=== PATIENT | female | born 1945 | race Caucasian/White ===

== ENCOUNTER → 2017-12-01 | Outpatient (CLI) | payer MEDICARE ==
[~2017-12-01] MED LIST: BUPIVACAINE MPF 0.25% 10 ML VIAL. ONE; LIDOCAINE 1% PF 30 ML VIAL. ONE
== END | disposition home or self-care (01) ==
LOC: SURG 14:06
PROVIDERS: ATTEND Anesthesiology
DX: M47.814 Spondylosis without myelopathy or radiculopathy, thoracic region (principal); J44.9 Chronic obstructive pulmonary disease, unspecified; I10 Essential (primary) hypertension; M19.90 Unspecified osteoarthritis, unspecified site; E07.9 Disorder of thyroid, unspecified; Z90.710 Acquired absence of both cervix and uterus; Z98.41 Cataract extraction status, right eye; Z98.42 Cataract extraction status, left eye; Z88.6 Allergy status to analgesic agent; Z88.1 Allergy status to other antibiotic agents; Z88.2 Allergy status to sulfonamides
CPT/HCPCS: 64490; 64491; J2001; J3490

== ENCOUNTER → 2018-01-19 | Outpatient (CLI) | payer MEDICARE ==
[~2018-01-19] MED LIST changes: +IOHEXOL 300 MG/ML 50 ML VIAL. ONE; +methylPREDNISolone ACETATE 40 MG/ML VIAL. ONE
== END | disposition home or self-care (01) ==
LOC: SURG 13:47
PROVIDERS: ATTEND Anesthesiology
DX: M19.012 Primary osteoarthritis, left shoulder (principal); J44.9 Chronic obstructive pulmonary disease, unspecified; K21.9 Gastro-esophageal reflux disease without esophagitis; E11.9 Type 2 diabetes mellitus without complications; Z88.0 Allergy status to penicillin; Z88.2 Allergy status to sulfonamides; Z88.5 Allergy status to narcotic agent; Z88.8 Allergy status to other drugs, medicaments and biological substances; Z88.1 Allergy status to other antibiotic agents; Z79.82 Long term (current) use of aspirin; Z79.899 Other long term (current) drug therapy
CPT/HCPCS: 20610; 77002; J1030; J2001; J3490; Q9967

== ENCOUNTER → 2018-10-20 | Outpatient (CLI) | payer MEDICARE ==
[~2018-10-20] MED LIST changes: -BUPIVACAINE MPF 0.25% 10 ML VIAL. ONE; +BUPIVACAINE MPF 0.5% 30 ML VIAL. ONE; -IOHEXOL 300 MG/ML 50 ML VIAL. ONE; -methylPREDNISolone ACETATE 40 MG/ML VIAL. ONE; +methylPREDNISolone ACETATE 80 MG/ML VIAL. ONE
== END | disposition home or self-care (01) ==
LOC: SURG 10:17
PROVIDERS: ATTEND Anesthesiology Pain Medicine
DX: M70.62 Trochanteric bursitis, left hip (principal); I10 Essential (primary) hypertension; J44.9 Chronic obstructive pulmonary disease, unspecified; K21.9 Gastro-esophageal reflux disease without esophagitis; E11.9 Type 2 diabetes mellitus without complications; M19.90 Unspecified osteoarthritis, unspecified site; E07.9 Disorder of thyroid, unspecified; Z88.0 Allergy status to penicillin; Z88.1 Allergy status to other antibiotic agents; Z88.2 Allergy status to sulfonamides; Z88.5 Allergy status to narcotic agent; Z87.01 Personal history of pneumonia (recurrent); Z96.642 Presence of left artificial hip joint; Z88.8 Allergy status to other drugs, medicaments and biological substances; Z79.84 Long term (current) use of oral hypoglycemic drugs; Z79.899 Other long term (current) drug therapy
CPT/HCPCS: 20610; 77002; J1040; J2001; J3490

== ENCOUNTER → 2018-12-01 | Outpatient (CLI) | payer MEDICARE ==
[~2018-12-01] MED LIST changes: +BUPIVACAINE MPF 0.25% 30 ML VIAL. ONE; -BUPIVACAINE MPF 0.5% 30 ML VIAL. ONE; +IOHEXOL 300 MG/ML 50 ML VIAL. ONE; +methylPREDNISolone ACETATE 40 MG/ML VIAL. ONE; -methylPREDNISolone ACETATE 80 MG/ML VIAL. ONE
== END | disposition home or self-care (01) ==
LOC: SURG 07:56
PROVIDERS: ATTEND Anesthesiology Pain Medicine
DX: M54.16 Radiculopathy, lumbar region (principal); J44.9 Chronic obstructive pulmonary disease, unspecified; Z87.01 Personal history of pneumonia (recurrent); K21.9 Gastro-esophageal reflux disease without esophagitis; E11.9 Type 2 diabetes mellitus without complications; Z88.0 Allergy status to penicillin; Z88.5 Allergy status to narcotic agent; Z88.1 Allergy status to other antibiotic agents; Z88.2 Allergy status to sulfonamides; Z88.8 Allergy status to other drugs, medicaments and biological substances; Z79.899 Other long term (current) drug therapy; M19.90 Unspecified osteoarthritis, unspecified site; Z96.649 Presence of unspecified artificial hip joint; Z79.84 Long term (current) use of oral hypoglycemic drugs
CPT/HCPCS: 64483; J1030; J2001; J3490; Q9967

== ENCOUNTER 2021-07-03 13:11 | Emergency (ER) | payer MEDICARE ==
[~2021-07-03] VITALS: Ht 165.1 cm; Wt 77.2 kg
[2021-07-03 13:36] VITALS: BP 137/77
[2021-07-03 14:11] LABS: BASO # 0.2 x10^3/uL (0.0-0.2); BASO % 3 % (0-3); EOS # 0.2 x10^3/uL (0.0-0.7); EOS % 2 % (0-3); HEMATOCRIT 42.5 % (36.0-47.0); HEMOGLOBIN 13.9 g/dL (12.0-15.5); LYMPH # 2.2 x10^3/uL (1.0-4.8); LYMPH % 29 % (24-48); MEAN CORPUSCULAR HEMOGLOBIN 30 pg (25-35); MEAN CORPUSCULAR HGB CONC 33 g/dL (31-37); MEAN CORPUSCULAR VOLUME 92 fL (79-100); MONO # 0.6 x10^3/uL (0.0-1.1); MONO % 7 % (0-9); NEUT # 4.5 x10^3uL (1.8-7.7); NEUT % 59 % (31-73); PLATELET COUNT 278 x10^3/uL (140-400); RED BLOOD COUNT 4.63 x10^6/uL (3.50-5.40); RED CELL DISTRIBUTION WIDTH 14.4 % (11.5-14.5); WHITE BLOOD COUNT 7.7 x10^3/uL (4.0-11.0)
[2021-07-03 14:13] LABS: CALCIUM 9.3 mg/dL (8.5-10.1); CREATININE 0.6 mg/dL (0.6-1.0); GFR 97.7; POTASSIUM 3.1 mmol/L (3.5-5.1)
[2021-07-03 14:21] LABS: ALBUMIN 3.6 g/dL (3.4-5.0); TOTAL BILIRUBIN 0.6 mg/dL (0.2-1.0); TOTAL PROTEIN 7.3 g/dL (6.4-8.2)
[2021-07-03] MEDS ORDERED: ONDANSETRON PF 4 MG/2 ML VIAL. IVP ONE (15:30)
[2021-07-03] MEDS ORDERED: IV NORMAL SALINE 500ML 500 ML IV ONE (15:30)
--- NOTE | 2021-07-03 15:38 | PHYS DOC ---
Past History Past Surgical History: Hip Replacement, Hysterectomy, Knee Replacement, Other Additional Past Surgical Histo: back, cataracts Alcohol Use: None Adult General Chief Complaint Chief Complaint: NAUSEA/VOMITING/DIARRHEA [facility] HPI Patient is a 75 old female patient who presents with nausea diarrhea for the last 4 days. Patient reports she has not had an appetite for the last week, and for the last 3 days she has not been able to eat eat or drink much as she has felt very nauseous. States she has not vomited at all today, however she has not vomited yesterday. States she had several episodes of diarrhea over the last few days, she had tried some Pepto-Bismol with some help a little bit, however she continues to have some diarrhea. States her diarrhea has been very difficult, denies any blood, however reports it has been orange to greenish-brown. States she never had this past. She does report she had a knee surgery 8 weeks ago, however is not placing antibiotics. States she has never been on any antibiotics in the last several months. States she is concerned maybe C. difficile however she did reports no exposure. She does not have a history of C. difficile. Denies any fever. States anytime she is writing something, she had some severe pain in her abdomen. States last time she is actually able to eat a decent meal was 1 week ago Review of Systems Review of Systems Constitutional: Denies fever or chills [] reports malaise Eyes: Denies change in visual acuity, redness, or eye pain [] HENT: Denies nasal congestion or sore throat [] Respiratory: Denies cough or shortness of breath [] Cardiovascular: No additional information not addressed in HPI [] GI: [] States nausea, vomiting, diarrhea. States intermittent abdominal pain, worse after eating or drinking any fluids. : Denies dysuria or hematuria [] states no urinary changes Musculoskeletal: Denies back pain or joint pain [] Integument: Denies rash or skin lesions [] Neurologic: Denies headache, focal weakness or sensory changes [] Endocrine: Denies polyuria or polydipsia [] All other systems were reviewed and found to be within normal limits, except as documented in this note. Current Medications Current Medications Current Medications Medications (Trade) Dose Ordered Sig/Constanza Start Time Stop Time Status Last Admin Dose Admin Ondansetron HCl (Zofran) 4 mg 1X ONCE 07/03/21 15:30 07/03/21 15:31 UNV Sodium Chloride 500 ml @ 0 mls/hr 1X ONCE 07/03/21 15:30 07/03/21 15:31 UNV Allergies Allergies Allergies Coded Allergies Type Severity Reaction Last Updated Verified tetanus toxoid, adsorbed Allergy Intermediate 07/03/21 Yes Sulfa (Sulfonamide Antibiotics) Allergy Unknown 07/03/21 Yes Tetracyclic Antidepressants Allergy Unknown 07/03/21 Yes codeine Allergy Unknown 07/03/21 Yes erythromycin base Allergy Unknown 07/03/21 Yes sumatriptan Allergy Unknown 07/03/21 Yes Physical Exam Physical Exam Constitutional: Well developed, well nourished, no acute distress, non-toxic appearance. [] HENT: Normocephalic, atraumatic, bilateral external ears normal, no oral exudates, nose normal. [] Oropharynx appears dry Eyes: PERRLA, EOMI, conjunctiva normal, no discharge. [] Neck: Normal range of motion, no tenderness, supple, no stridor. [] Cardiovascular:Heart rate regular rhythm, no murmur [] Lungs & Thorax: Bilateral breath sounds clear to auscultation [] Abdomen: , soft, , no masses, no pulsatile masses. [] Diminished bowel sounds t hroughout. Tenderness noted on palpation to the left upper quadrant Skin: Warm, dry, no erythema, no rash. [] Back: No tenderness, no CVA tenderness. [] Extremities: No tenderness, no cyanosis, no clubbing, ROM intact, no edema. [] Neurologic: Alert and oriented X 3, normal motor function, normal sensory function, no focal deficits noted. [] Psychologic: Affect normal, judgement normal, mood normal. [] Current Patient Data Vital Signs Vital Signs Date Time Temp Pulse Resp B/P (MAP) Pulse Ox O2 Delivery O2 Flow Rate FiO2 07/03/21 13:36 99.3 77 16 137/77 100 Room Air Lab Results Laboratory Tests Test 07/03/21 13:44 White Blood Count 7.7 x10^3/uL (4.0-11.0) Red Blood Count 4.63 x10^6/uL (3.50-5.40) Hemoglobin 13.9 g/dL (12.0-15.5) Hematocrit 42.5 % (36.0-47.0) Mean Corpuscular Volume 92 fL (79-100) Mean Corpuscular Hemoglobin 30 pg (25-35) Mean Corpuscular Hemoglobin Concent 33 g/dL (31-37) Red Cell Distribution Width 14.4 % (11.5-14.5) Platelet Count 278 x10^3/uL (140-400) Neutrophils (%) (Auto) 59 % (31-73) Lymphocytes (%) (Auto) 29 % (24-48) Monocytes (%) (Auto) 7 % (0-9) Eosinophils (%) (Auto) 2 % (0-3) Basophils (%) (Auto) 3 % (0-3) Neutrophils # (Auto) 4.5 x10^3uL (1.8-7.7) Lymphocytes # (Auto) 2.2 x10^3/uL (1.0-4.8) Monocytes # (Auto) 0.6 x10^3/uL (0.0-1.1) Eosinophils # (Auto) 0.2 x10^3/uL (0.0-0.7) Basophils # (Auto) 0.2 x10^3/uL (0.0-0.2) Sodium Level 138 mmol/L (136-145) Potassium Level 3.1 mmol/L (3.5-5.1) L Chloride Level 104 mmol/L (98-107) Carbon Dioxide Level 23 mmol/L (21-32) Anion Gap 11 (6-14) Blood Urea Nitrogen 8 mg/dL (7-20) Creatinine 0.6 mg/dL (0.6-1.0) Estimated GFR (Cockcroft-Gault) 97.7 BUN/Creatinine Ratio 13 (6-20) Glucose Level 141 mg/dL (70-99) H Calcium Level 9.3 mg/dL (8.5-10.1) Total Bilirubin 0.6 mg/dL (0.2-1.0) Aspartate Amino Transferase (AST) 22 U/L (15-37) Alanine Aminotransferase (ALT) 20 U/L (14-59) Alkaline Phosphatase 117 U/L (46-116) H Total Protein 7.3 g/dL (6.4-8.2) Albumin 3.6 g/dL (3.4-5.0) Albumin/Globulin Ratio 1.0 (1.0-1.7) EKG EKG [] Radiology/Procedures Radiology/Procedures [] PATIENT: JANE CORDERO ACCOUNT: [id number] : 1945 LOCATION: ER AGE: 75 SEX: F EXAM STATUS: REG ER ORD. PHYSICIAN: MARITZA WILSON APRN REASON: abdominal pain with diarrhea, OMNI 300, 75ml PROCEDURE: CT ABD PELV W/ IV CONTRST ONLY CT ABDOMEN+PELVIS W History: Abdominal pain with diarrhea. Comparison: None. Technique: CT of the abdomen and pelvis with intravenous contrast. Findings: The lung bases are clear. Mild calcification of the aortic annulus. No pleural or pericardial effusion. The liver is within normal limits. Partially decompressed gallbladder without stones identified. Mild pancreatic atrophy. Calcification of the spleen may represent old granulomatous disease. The adrenal glands are unremarkable. Kidneys and ureters are unremarkable. The bladder is partially obscured by metallic streak artifact from left total hip arthroplasty. No focal bladder abnormalities appreciated. The uterus is either atrophic or surgically absent, and obscured by arthroplasty. Normal stomach and small bowel. The appendix is not identified, potentially post appendectomy. No evidence of appendicitis. There is fluid within the ascending colon. The transverse, descending colon to the rectum is nondistended. No pericolonic inflammatory changes. No wall thickening is appreciated. No free fluid or air in the abdomen and pelvis. No abdominal pelvic adenopathy. The vasculature is within normal limits. Soft tissues are unremarkable. Postsurgical changes from fixation at L4-L5 and L5-S1. Multilevel degenerative changes of the upper lumbar spine. Degenerative changes of the right hip. Left total hip arthroplasty. No acute or pathologic osseous lesions. Impression: 1. No acute findings in the abdomen and pelvis. ------ Exposure: One or more of the following individualized dose reduction techniques were utilized for this examination: 1. Automated exposure control 2. Adjustment of the mA and/or kV according to patient size 3. Use of iterative reconstruction technique. Electronically signed by: Vincent Randhawa MD (07/03/2021 4:49 PM) [facility] DICTATED AND SIGNED BY: VINCENT RANDHAWA MD DATE: 07/03/21 163 CC: EMERGENCY,DEPARTMENT; MARITZA WILSON APRN; TANA DESAI ~MTH0 0 Heart Score C/O Chest Pain: No Risk Factors: Risk Factors: DM, Current or recent (<one month) smoker, HTN, HLP, family history of CAD, obesity. Risk Scores: Risk Factors: DM, Current or recent (<one month) smoker, HTN, HLP, family history of CAD, obesity. Course & Med Decision Making Course & Med Decision Making Pertinent Labs and Imaging studies reviewed. (See chart for details) Will evaluate labs, administer 500 ml fluid. Zofran, Image CT abd/pel due to abdominal pain, discomfort, stool change. []REviewed labs with mild hypokalemia. Will provide K+ here. Urinalysis shows contaminated sample. Patient with no urinary symptoms. LIkely gastroenteritis with nausea, vomiting, diarrhea. no additional discomfort to patient. She reports she is feeling better following fluids and zofran. Patient does report her symptoms seem to start after eating at [employer] a couple days ago, she was concerned that he may have a something that she had eaten. Dragon Disclaimer Dragon Disclaimer This electronic medical record was generated, in whole or in part, using a voice recognition dictation system. Departure Departure: Impression: Primary Impression: Gastroenteritis Additional Impression: Hypokalemia due to excessive gastrointestinal loss of potassium Disposition: 01 HOME / SELF CARE / HOMELESS Condition: STABLE Referrals: TANA DESAI (PCP) Patient Instructions: Diarrhea, Viral Gastroenteritis, [id number] Additional Instructions: Make sure you are drinking plenty of fluids and eating. Start out with a basic diet, after your diarrhea. Follow up with your primary care provider as needed Scripts Ondansetron (ONDANSETRON ODT) 4 Mg Tab.rapdis 1 TAB PO PRN Q6-8HRS for nausea and vomiting, #10 TAB Prov: MARITZA WILSON APRN 07/03/21 Problem Qualifiers MARITZA WILSON APRN Jul 03, 2021 15:38
[2021-07-03] MEDS ORDERED: IOHEXOL 300 MG/ML 75 ML VIAL. IV ONE (15:45)
[2021-07-03 16:28] LABS: BACTERIA,URINE FEW /HPF (0-FEW); BILIRUBIN,URINE NEG (NEG); CLARITY,URINE CLEAR; COLOR,URINE YELLOW; GLUCOSE,URINE NEG (NEG); NITRITE,URINE NEG (NEG); SQUAMOUS EPITHELIAL CELL,UR MOD /LPF; UROBILINOGEN,URINE 0.2 mg/dL (0.2 mg/dL)
--- NOTE | 2021-07-03 16:52 | RAD ---
CT ABDOMEN+PELVIS W History: Abdominal pain with diarrhea. Comparison: None. Technique: CT of the abdomen and pelvis with intravenous contrast. Findings: The lung bases are clear. Mild calcification of the aortic annulus. No pleural or pericardial effusio n. The liver is within normal limits. Partially decompressed gallbladder without stones identified. Mild pancreatic atrophy. Calcification of the spleen may represent old granulomatous disease. The adrenal glands are unremarkable. Kidneys and ureters are unremarkable. The bladder is partially obscured by metallic streak artifact from left total hip arthroplasty. No focal bladder abnormalities appreciated . The uterus is either atrophic or surgically absent, and obscured by arthroplasty. Normal stomach and small bowel. The appendix is not identified, potentially post appendectomy. No ericka dence of appendicitis. There is fluid within the ascending colon. The transverse, descending colon to the rectum is nondistended. No pericolonic inflammatory changes. No wall thickening is appreciated. No free fluid or air in the abdomen and pelvis. No abdominal pelvic adenopathy. The vasculature is wi thin normal limits. Soft tissues are unremarkable. Postsurgical changes from fixation at L4-L5 and L5-S1. Multilevel dege nerative changes of the upper lumbar spine. Degenerative changes of the right hip. Left total hip art hroplasty. No acute or pathologic osseous lesions. Impression: 1. No acute findings in the abdomen and pelvis. ------ Exposure: One or more of the following individualized dose reduction techniques were utilized for thi s examination: 1. Automated exposure control 2. Adjustment of the mA and/or kV according to patient size 3. Use of iterative reconstruction technique. Electronically signed by: Vincent Gregory MD (07/03/2021 4:49 PM) [facility]
[2021-07-03] MEDS ORDERED: ONDA4TAB12 PO (17:22)
[2021-07-03] MEDS ORDERED: POTASSIUM CHLORIDE 20 MEQ TABLET.ER. PO ONE (17:30)
== END 2021-07-03 17:42 | disposition home or self-care (01) ==
LOC: ER 13:11
DX: K52.9 Noninfective gastroenteritis and colitis, unspecified (principal); E87.6 Hypokalemia; Z88.7 Allergy status to serum and vaccine; Z88.2 Allergy status to sulfonamides; Z88.1 Allergy status to other antibiotic agents; Z88.5 Allergy status to narcotic agent; Z88.8 Allergy status to other drugs, medicaments and biological substances
CPT/HCPCS: 36415; 74177; 80053; 81001; 85025; 87086; 96361; 96374; 99285; J2405; J7040; Q9967

== ENCOUNTER 2022-02-20 21:32 | Emergency (ER) | payer MEDICARE ==
[~2022-02-20] VITALS: Ht 165.1 cm; Wt 82.0 kg
[~2022-02-20 21:32] MED LIST changes: -BUPIVACAINE MPF 0.25% 30 ML VIAL. ONE; -IOHEXOL 300 MG/ML 50 ML VIAL. ONE; -LIDOCAINE 1% PF 30 ML VIAL. ONE; +ONDA4TAB12 PO; -methylPREDNISolone ACETATE 40 MG/ML VIAL. ONE
[2022-02-20] MEDS ORDERED: ONDANSETRON PF 4 MG/2 ML VIAL. IVP ONE (22:00)
[2022-02-20] MEDS ORDERED: IV NORMAL SALINE 1,000ML 1,000 ML IV ONE (22:00)
--- NOTE | 2022-02-20 22:19 | PHYS DOC ---
Past History Additional Past Medical Histor: mitral valve prolapse, fatty liver Past Surgical History: Hip Replacement, Hysterectomy, Knee Replacement, Other Additional Past Surgical Histo: back, cataracts Alcohol Use: None General Adult EDM: Chief Complaint: NAUSEA/VOMITING/DIARRHEA HPI: HPI: 76-year-old female presents with vomiting. The patient was eating some rice milk earlier when she suddenly felt nauseous and had to throw up. She states that it just came up as a frothy saliva. She still feels a bit nauseated. She was feeling completely fine until this episode. She feels like there might be a lump in her throat. She has had esophageal dilation in the past. Is been several years. Denies abdominal pain. She denies fever chills. She has no other complaints this time. Review of Systems: Review of Systems: Constitutional: Denies fever or chills Eyes: Denies change in visual acuity HENT: Denies nasal congestion or sore throat Respiratory: Denies cough or shortness of breath Cardiovascular: Denies chest pain or edema GI: Nausea, vomiting. Denies abdominal pain, bloody stools or diarrhea : Denies dysuria Musculoskeletal: Denies back pain or joint pain Integument: Denies rash Neurologic: Denies headache, focal weakness or sensory changes Endocrine: Denies polyuria or polydipsia Lymphatic: Denies swollen glands Psychiatric: Denies depression or anxiety Current Medications: Current Meds: Current Medications Medications (Trade) Dose Ordered Sig/Constanza Start Time Stop Time Status Last Admin Dose Admin Ondansetron HCl (Zofran) 4 mg 1X ONCE 02/20/22 22:00 02/20/22 22:16 DC Sodium Chloride 1,000 ml @ 1,000 mls/hr 1X ONCE 02/20/22 22:00 02/20/22 22:59 Allergies: Allergies: Allergies Coded Allergies Type Severity Reaction Last Updated Verified tetanus toxoid, adsorbed Allergy Intermediate 02/20/22 Yes Sulfa (Sulfonamide Antibiotics) Allergy Unknown 02/20/22 Yes Tetracyclic Antidepressants Allergy Unknown 02/20/22 Yes bee venom protein (honey bee) Allergy Unknown 02/20/22 Yes codeine Allergy Unknown 02/20/22 Yes erythromycin base Allergy Unknown 02/20/22 Yes sumatriptan Allergy Unknown 02/20/22 Yes Physical Exam: PE: Constitutional: Well developed, well nourished, no acute distress, non-toxic appearance. [] HENT: Normocephalic, atraumatic, bilateral external ears normal, oropharynx moist, no oral exudates, nose normal. [] Eyes: PERRLA, EOMI, conjunctiva normal, no discharge. [] Neck: Normal range of motion, no tenderness, supple, no stridor. [] Cardiovascular: Heart rate r48, egular rhythm, no murmur [] Lungs & Thorax: Bilateral breath sounds clear to auscultation [] Abdomen: Bowel sounds normal, soft, no tenderness, no masses, no pulsatile masses. [] Skin: Warm, dry, no erythema, no rash. [] Back: No tenderness, no CVA tenderness. [] Extremities: No tenderness, no cyanosis, no clubbing, ROM intact, no edema. [] Neurologic: Alert and oriented X 3, normal motor function, normal sensory function, no focal deficits noted. [] Psychologic: Affect normal, judgement normal, mood normal. [] Current Patient Data: Vital Signs: Vital Signs Date Time Temp Pulse Resp B/P (MAP) Pulse Ox O2 Delivery O2 Flow Rate FiO2 02/20/22 21:55 98.2 52 18 153/73 (99) 97 Room Air EKG: EKG: [] Radiology/Procedures: Radiology/Procedures: [] Impressions: XR NECK SOFT TISSUE 02/20/2022 10:16 PM INDICATION: Possible retained food COMPARISON: None available. TECHNIQUE: AP and lateral views of the neck soft tissues are provided. FINDINGS/ IMPRESSION: There is ill-defined soft tissue identified above the level of the true cords within the hypopharynx. This could represent retained food. Epiglottis is normal in appearance. No prevertebral soft tissue swelling. Thyroid and arytenoid cartilages appear calcified. Oropharyngeal airway appears patent. Electronically signed by: Ashley Vicente MD (02/20/2022 10:33 PM) [facility] DI[facility]ATED AND SIGNED BY: ASHLEY VICENTE MD DATE: 02/20/222230 CC: EJ HARDEN DO; TANA DESAI ~ Heart Score: C/O Chest Pain: N/A Risk Factors: Risk Factors: DM, Current or recent (<one month) smoker, HTN, HLP, family history of CAD, obesity. Risk Scores: Score 0 - 3: 2.5% MACE over next 6 weeks - Discharge Home Score 4 - 6: 20.3% MACE over next 6 weeks - Admit for Clinical Observation Score 7 - 10: 72.7% MACE over next 6 weeks - Early Invasive Strategies Course & Med Decision Making: Course & Med Decision Making Pertinent Labs and Imaging studies reviewed. (See chart for details) The patient's labs are unremarkable. Her urinalysis is unremarkable. Soft tissue x-ray is inconclusive about retained food in the throat. See official read for details. The patient did drink some Sprite in the emergency room without difficulty. She states feeling better and is willing to go home. She is stable for discharge at this time. [] Dragon Disclaimer: Dragon Disclaimer: This electronic medical record was generated, in whole or in part, using a voice recognition dictation system. Departure Departure: Impression: Primary Impression: Vomiting Additional Impression: Globus sensation Disposition: 01 HOME / SELF CARE / HOMELESS Condition: STABLE Referrals: TANA DESAI (PCP) Patient Instructions: Esophageal Stricture EJ HARDEN DO Feb 20, 2022 22:19
[2022-02-20 22:25] LABS: BASO # 0.1 x10^3/uL (0.0-0.2); BASO % 1 % (0-3); EOS # 0.2 x10^3/uL (0.0-0.7); EOS % 4 % (0-3); HEMATOCRIT 40.8 % (36.0-47.0); HEMOGLOBIN 13.4 g/dL (12.0-15.5); LYMPH # 2.4 x10^3/uL (1.0-4.8); LYMPH % 45 % (24-48); MEAN CORPUSCULAR HEMOGLOBIN 30 pg (25-35); MEAN CORPUSCULAR HGB CONC 33 g/dL (31-37); MEAN CORPUSCULAR VOLUME 91 fL (79-100); MONO # 0.5 x10^3/uL (0.0-1.1); MONO % 9 % (0-9); NEUT # 2.3 x10^3uL (1.8-7.7); NEUT % 42 % (31-73); PLATELET COUNT 212 x10^3/uL (140-400); RED BLOOD COUNT 4.47 x10^6/uL (3.50-5.40); RED CELL DISTRIBUTION WIDTH 14.5 % (11.5-14.5); WHITE BLOOD COUNT 5.5 x10^3/uL (4.0-11.0)
[2022-02-20 22:30] LABS: CALCIUM 9.1 mg/dL (8.5-10.1); CREATININE 0.7 mg/dL (0.6-1.0); GFR 81.6; POTASSIUM 3.5 mmol/L (3.5-5.1)
[2022-02-20 22:36] LABS: ALBUMIN 3.4 g/dL (3.4-5.0); TOTAL BILIRUBIN 0.4 mg/dL (0.2-1.0); TOTAL PROTEIN 6.9 g/dL (6.4-8.2)
--- NOTE | 2022-02-20 22:36 | RAD ---
XR NECK SOFT TISSUE 02/20/2022 10:16 PM INDICATION: Possible retained food COMPARISON: None available. TECHNIQUE: AP and lateral views of the neck soft tissues are provided. FINDINGS/ IMPRESSION: There is ill-defined soft tissue identified above the level of the true cords within the hypopharynx. This could represent retained food. Epiglottis is normal in appearance. No prevertebral soft tissue swelling. Thyroid and arytenoid cartilages appear calcified. Oropharyngeal airway appears patent. Electronically signed by: Jyoti Vicente MD (02/20/2022 10:33 PM) [facility]
[2022-02-20 23:37] LABS: BACTERIA,URINE 0 /HPF (0-FEW); CLARITY,URINE CLEAR; COLOR,URINE YELLOW; GLUCOSE,URINE NEG (NEG); NITRITE,URINE NEG (NEG); RBC,URINE 0 /HPF (0-2); SQUAMOUS EPITHELIAL CELL,UR OCC /LPF; UROBILINOGEN,URINE 0.2 mg/dL (0.2 mg/dL); WBC,URINE OCC /HPF (0-4)
[2022-02-20 23:42] VITALS: BP 137/51
--- NOTE | 2022-02-21 00:23 | EKG ---
[address] [address] Test Date: 2022-02-20 Test Time: 21:59:40 Pat Name: JANE CORDERO Department: Room: Gender: F Gopherman: : 1945 Requested By: EJ HARDEN Order Number: [id number] Reading MD: Fernando Villegas Measurements Intervals [place] Rate: 48 P: -45 WV: 172 QRS: -19 QRSD: 96 T: 23 QT: 474 QTc: 427 Interpretive Statements SINUS BRADYCARDIA LEFTWARD AXIS Electronically Signed On 02-22-2022 21:24:26 CDT by Fernando Villegas
== END 2022-02-20 23:55 | disposition home or self-care (01) ==
LOC: ER 21:32
DX: F45.8 Other somatoform disorders (principal); R11.2 Nausea with vomiting, unspecified; Z88.7 Allergy status to serum and vaccine; Z88.2 Allergy status to sulfonamides; Z88.1 Allergy status to other antibiotic agents; Z88.5 Allergy status to narcotic agent; Z88.8 Allergy status to other drugs, medicaments and biological substances; Z91.030 Bee allergy status
CPT/HCPCS: 36415; 70360; 80053; 81001; 85025; 93005; 96361; 96374; 99284; J2405; J7030; 99285